=== PATIENT | female | born 1980 | race Caucasian/White ===

== ENCOUNTER 2017-01-06 19:51 | Inpatient (IN) | payer OTHER ==
[~2017-01-06] VITALS: Ht 162.6 cm; Wt 73.2 kg
[~2017-01-06 19:51] MED LIST: methylPREDNISolone SOD SUCC 125 MG/2ML VIAL ONE
[2017-01-06] MEDS ORDERED: ALBUTEROL FS 2.5 MG/3 ML VIAL.NEB ONE ×2 (19:56→20:12)
[2017-01-06] MEDS ORDERED: IPRATROPIUM NEB FS 0.5 MG/2.5 ML AMPUL.NEB ONE (19:56)
[2017-01-06] MEDS ORDERED: ALBUTEROL FS 2.5 MG/3 ML VIAL.NEB CONTNEB ONE (20:00)
[2017-01-06] MEDS ORDERED: ALBUTEROL FS 2.5 MG/3 ML VIAL.NEB NEB ONE (20:00)
[2017-01-06] MEDS ORDERED: IPRATROPIUM NEB FS 0.5 MG/2.5 ML AMPUL.NEB NEB ONE (20:00)
[2017-01-06] MEDS ORDERED: methylPREDNISolone SOD SUCC 125 MG/2ML VIAL IV ONE (20:00)
[2017-01-06 20:32] LABS: BASOPHILS # (AUTO) 0.2 /CMM (0.0-0.2); DIFF TOTAL % 100 %; EOSINOPHILS # (AUTO) 1.2 /CMM (0.0-0.7); EOSINOPHILS % (AUTO) 6.3 % (0.0-6.0); HEMATOCRIT 35 % (33-45); HEMOGLOBIN 11.9 g/dL (11.5-14.8); LYMPHOCYTES # (AUTO) 5.9 /CMM (0.8-4.8); LYMPHOCYTES % (AUTO) 32.2 % (20.0-44.0); MEAN CORPUSCULAR HEMOGLOBIN 29 PG (26.0-33.0); MEAN CORPUSCULAR HGB CONC 34 g/dl (31.0-36.0); MEAN CORPUSCULAR VOLUME 86 fL (82-100); MONOCYTES # (AUTO) 1.4 /CMM (0.1-1.30); MONOCYTES % (AUTO) 7.5 % (2.0-12.0); NEUTROPHILS # (AUTO) 9.7 /CMM (1.8-8.9); PLATELET COUNT (AUTO) 340 /CMM (150-450); RED BLOOD CELL COUNT(AUTO) 4.07 MIL/uL (4.0-5.2); WHITE BLOOD COUNT (AUTO) 18.4 K/uL (4.3-11.0)
[2017-01-06 20:38] LABS: CALCIUM, SERUM 7.9 mg/dL (8.5-10.1); CREATININE 0.7 mg/dL (0.6-1.3)
[2017-01-06] MEDS ORDERED: POTASSIUM CHLORIDE 20 MEQ TAB.PRT.SR PO ONE ×4 (21:00→21:30)
[2017-01-06] MEDS ORDERED: Magnesium 1 GM/2 ML VIAL IV ONE (21:00)
[2017-01-06] MEDS ORDERED: IV SET PRIMARY PUMP SET 1 EA INFUS.SET MC ONE (21:01)
[2017-01-06] MEDS ORDERED: Magnesium 1GM/D5W 100ML PREMIX 200 ML IV ONE (21:01)
[2017-01-06] MEDS ORDERED: ZOLPIDEM TARTRATE 5 MG TABLET PO PRN (21:30)
[2017-01-06] MEDS ORDERED: IV NS 0.9% 1,000 ML IV ONE (21:30)
[2017-01-06] MEDS ORDERED: ACETAMINOPHEN 325 MG TABLET PO PRN (21:30)
[2017-01-06 22:00] VITALS: BP 129/76
[2017-01-06 22:06] VITALS: BP 126/76
[2017-01-07] MEDS ORDERED: IPRATROPIUM NEB FS 0.5 MG/2.5 ML AMPUL.NEB ONE (00:33)
[2017-01-07] MEDS ORDERED: ALBUTEROL FS 2.5 MG/0.5 ML VIAL.NEB ONE (00:33)
[2017-01-07] MEDS ORDERED: ACETAMINOPHEN 325 MG TABLET ONE (00:38)
[2017-01-07] MEDS ORDERED: methylPREDNISolone SOD SUCC 125 MG/2ML VIAL ONE ×2 (00:38→04:35)
[2017-01-07] MEDS: methylPREDNISolone SOD SUCC 125 MG/2ML VIAL IV SCH ×2 (00:53→06:09)
[2017-01-07] MEDS: ALBUTEROL FS 2.5 MG/0.5 ML VIAL.NEB NEB SCH ×3 (01:04→13:33)
[2017-01-07] MEDS: IPRATROPIUM NEB FS 0.5 MG/2.5 ML AMPUL.NEB NEB SCH ×3 (01:04→13:34)
[2017-01-07 07:39] LABS: DIFF TOTAL % 100 %; HEMATOCRIT 34 % (33-45); HEMOGLOBIN 11.2 g/dL (11.5-14.8); LYMPHOCYTES # (AUTO) 0.7 /CMM (0.8-4.8); LYMPHOCYTES % (AUTO) 5.7 % (20.0-44.0); MEAN CORPUSCULAR HEMOGLOBIN 29 PG (26.0-33.0); MEAN CORPUSCULAR HGB CONC 34 g/dl (31.0-36.0); MEAN CORPUSCULAR VOLUME 87 fL (82-100); MONOCYTES # (AUTO) 0.1 /CMM (0.1-1.30); MONOCYTES % (AUTO) 0.4 % (2.0-12.0); NEUTROPHILS % (AUTO) 93.9 % (43.0-81.0); PLATELET COUNT (AUTO) 263 /CMM (150-450); RED BLOOD CELL COUNT(AUTO) 3.87 MIL/uL (4.0-5.2); WHITE BLOOD COUNT (AUTO) 12.7 K/uL (4.3-11.0)
[2017-01-07 07:45] LABS: ALBUMIN 3.5 g/dL (3.4-5.0); BILIRUBIN,TOTAL 0.3 mg/dL (0.2-1.0); CALCIUM, SERUM 7.9 mg/dL (8.5-10.1); CREATININE 0.8 mg/dL (0.6-1.3); PHOSPHORUS 2.5 mg/dL (2.5-4.9); POTASSIUM 4.3 mmol/L (3.5-5.1); TOTAL PROTEIN, SERUM 6.8 g/dL (6.4-8.2)
[2017-01-07 08:00] VITALS: BP 123/75
[2017-01-07 08:13] VITALS: BP 123/75
[2017-01-07] MEDS ORDERED: GUAIFENESIN LA 600 MG TABLET.SA PO SCH (09:00)
[2017-01-07] MEDS ORDERED: PANTOPRAZOLE 40 MG TABLET.DR PO SCH (09:00)
[2017-01-07] MEDS ORDERED: IV SET PRIMARY PUMP SET 1 EA INFUS.SET MC ONE (12:12)
[2017-01-07] MEDS: Magnesium 1GM/D5W 100ML PREMIX 100 ML IV SCH ×2 (12:17→13:34)
[2017-01-07] MEDS ORDERED: methylPREDNISolone SOD SUCC 125 MG/2ML VIAL IV SCH (13:00)
[2017-01-07] MEDS ORDERED: ALBU1.257 NEB (16:18)
[2017-01-07] MEDS ORDERED: FLUT1DIS INH (16:18)
[2017-01-07] MEDS ORDERED: PRED20TA PO (16:20)
== END 2017-01-07 17:05 | disposition home or self-care (01) | DRG 203 ==
LOC: ER 19:52 → TELE 21:25 → MED 23:34
PROVIDERS: ADMIT Internal Medicine; ATTEND Internal Medicine
DX: J45.901 Unspecified asthma with (acute) exacerbation (principal); E87.6 Hypokalemia; D72.829 Elevated white blood cell count, unspecified; F17.210 Nicotine dependence, cigarettes, uncomplicated; T38.0X5A Adverse effect of glucocorticoids and synthetic analogues, initial encounter; J06.9 Acute upper respiratory infection, unspecified
CPT/HCPCS: 36415; 71010-TC; 80048-TC; 80053-TC; 83735-TC; 84100-TC; 84703-TC; 85025-TC; 87081-TC; 94799-TC; A4606; J2930; J3475; Z7610

== ENCOUNTER 2017-02-02 22:07 | Emergency (ER) | payer OTHER ==
[~2017-02-02] VITALS: Ht 162.6 cm; Wt 72.6 kg
[~2017-02-02 22:07] MED LIST changes: +ALBU1.257 NEB; +FLUT1DIS INH; +PRED20TA PO; -methylPREDNISolone SOD SUCC 125 MG/2ML VIAL ONE
--- NOTE | 2017-02-02 22:26 | NUR ---
PT AMBUALTORY TO ER BED 7 BB FAMILY; ASTHMA ATTACK, AT HOME INHALER NOT WORKING. PT AOX3 RR EVEN AND UNLABORED. NO SOB NOTED. NAD NOTED. NO NVD AT THIS TIME. PT NOT DIAPHORETIC. PT GOWNED AND PLACED ON MONITOR WAITING FOR MD GUZMÁN.
[2017-02-02] MEDS ORDERED: IPRATROPIUM NEB FS 0.5 MG/2.5 ML AMPUL.NEB NEB ONE (22:30)
[2017-02-02] MEDS ORDERED: ALBUTEROL FS 2.5 MG/3 ML VIAL.NEB NEB ONE (22:30)
[2017-02-02] MEDS ORDERED: DEXAMETHASONE SOD PHOSPHATE 4 MG/ML VIAL IM ONE (22:30)
[2017-02-02] MEDS ORDERED: DEXAMETHASONE SOD PHOSPHATE 4 MG/ML VIAL ONE (22:30)
[2017-02-02] MEDS ORDERED: IPRATROPIUM NEB FS 0.5 MG/2.5 ML AMPUL.NEB ONE (22:32)
[2017-02-02] MEDS ORDERED: ALBUTEROL FS 2.5 MG/3 ML VIAL.NEB ONE (22:32)
--- NOTE | 2017-02-02 22:39 | NUR ---
RT AT BEDSIDE FOR BREATHING TX
--- NOTE | 2017-02-02 23:37 | NUR ---
Patient discharged to home in stable condition. Written and verbal after care instructions given. Patient verbalizes understanding of instruction. ambulatory with a steady gait
[2017-02-02 23:38] VITALS: BP 124/68
== END 2017-02-02 23:39 | disposition home or self-care (01) ==
LOC: ER 22:09
DX: J45.901 Unspecified asthma with (acute) exacerbation (principal)
CPT/HCPCS: 94644; 96372; 99285; A4606; J1100; Z7610

== ENCOUNTER 2023-12-20 15:49 | Emergency (ER) | payer OTHER ==
[~2023-12-20] VITALS: Ht 162.6 cm; Wt 79.4 kg
[2023-12-20] MEDS ORDERED: IPRATROPIUM NEB FS 0.5 MG/2.5 ML AMPUL.NEB NEB STA (16:11)
[2023-12-20] MEDS ORDERED: ALBUTEROL FS 2.5 MG/3 ML VIAL.NEB NEB STA (16:11)
[2023-12-20 16:49] LABS: BASOPHILS # (AUTO) 0.1 K/uL (0.0-0.2); BASOPHILS % (AUTO) 0.9 % (0.0-2.0); EOSINOPHILS # (AUTO) 0.8 K/uL (0.0-0.7); EOSINOPHILS % (AUTO) 10.5 % (0.0-6.0); HEMATOCRIT 37 % (33-45); HEMOGLOBIN 12.5 g/dL (11.5-14.8); LYMPHOCYTES # (AUTO) 2.1 K/uL (0.8-4.8); LYMPHOCYTES % (AUTO) 28.3 % (20.0-44.0); MEAN CORPUSCULAR HEMOGLOBIN 29 PG (26.0-33.0); MEAN CORPUSCULAR HGB CONC 34 g/dl (31.0-36.0); MEAN CORPUSCULAR VOLUME 86 fL (82-100); MONOCYTES # (AUTO) 0.5 K/uL (0.1-1.30); MONOCYTES % (AUTO) 6.8 % (2.0-12.0); NEUTROPHILS # (AUTO) 4.1 K/uL (1.8-8.9); NEUTROPHILS % (AUTO) 53.5 % (43.0-81.0); PLATELET COUNT (AUTO) 292 K/uL (150-450); RED BLOOD CELL COUNT(AUTO) 4.35 MIL/uL (4.0-5.2); WHITE BLOOD COUNT (AUTO) 7.6 K/uL (4.3-11.0)
[2023-12-20 16:56] LABS: CALCIUM, SERUM 8.9 mg/dL (8.5-10.1); CARBON DIOXIDE 26 mmol/L (21-32); CHLORIDE 105 mmol/L (98-107); CREATININE 0.6 mg/dL (0.6-1.3); GLUCOSE 126 mg/dL (74-106); POTASSIUM 3.1 mmol/L (3.5-5.1); SODIUM SERUM 139 mmol/L (136-145); UREA NITROGEN, BLOOD 16 mg/dL (7-18)
[2023-12-20 17:11] VITALS: O2SAT 96
[2023-12-20] MEDS ORDERED: IPRATROPIUM NEB FS 0.5 MG/2.5 ML AMPUL.NEB ONE (17:21)
[2023-12-20] MEDS ORDERED: ALBUTEROL FS 2.5 MG/3 ML VIAL.NEB ONE (17:21)
[2023-12-20 17:30] VITALS: O2SAT 98
[2023-12-20] MEDS ORDERED: POTASSIUM CHLORIDE 20 MEQ TAB.PRT.SR PO ONE ×2 (18:00→18:08)
[2023-12-20] MEDS ORDERED: predniSONE 50 MG TABLET PO ONE (19:00)
[2023-12-20] MEDS ORDERED: predniSONE 20 MG TABLET ONE (19:23)
[2023-12-20] MEDS ORDERED: PRED50TA PO (19:44)
[2023-12-20 19:54] VITALS: BP 131/81; TEMP 98; O2SAT 99
== END 2023-12-20 19:55 | disposition home or self-care (01) ==
LOC: ER 15:55
DX: J45.901 Unspecified asthma with (acute) exacerbation (principal); R10.2 Pelvic and perineal pain
CPT/HCPCS: 99285; 71045; 93005; 85025; 80048; 36415; 84484; 84702; 94640; J7512

== ENCOUNTER 2024-11-05 20:04 | Emergency (ER) | payer OTHER ==
[~2024-11-05] VITALS: Ht 162.6 cm; Wt 68.0 kg
[~2024-11-05 20:04] MED LIST changes: +PRED50TA PO
[2024-11-05 23:38] VITALS: BP 122/75; TEMP 98.1; O2SAT 98
== END 2024-11-05 23:38 | disposition home or self-care (01) ==
LOC: ER 20:06
DX: M25.512 Pain in left shoulder (principal); M54.2 Cervicalgia; R20.2 Paresthesia of skin; J45.909 Unspecified asthma, uncomplicated; Z79.51 Long term (current) use of inhaled steroids; Z79.52 Long term (current) use of systemic steroids; W01.0XXA Fall on same level from slipping, tripping and stumbling without subsequent striking against object, initial encounter; Y93.89 Activity, other specified; Y92.89 Other specified places as the place of occurrence of the external cause; Y99.8 Other external cause status
CPT/HCPCS: 73030-TC

== ENCOUNTER 2024-11-23 10:03 | Emergency (ER) | payer OTHER ==
[~2024-11-23] VITALS: Ht 162.6 cm; Wt 68.0 kg
[2024-11-23] MEDS ORDERED: TDAP [DIPH/PERTUSSIS/TET] 0.5 ML VIAL IM ONE (10:58)
[2024-11-23] MEDS: TDAP [DIPH/PERTUSSIS/TET] 0.5 ML VIAL IM ONE (11:02)
[2024-11-23] MEDS ORDERED: AMOX-430 PO (11:03)
[2024-11-23 11:12] VITALS: BP 114/69; TEMP 98.4; O2SAT 100
== END 2024-11-23 11:12 | disposition home or self-care (01) ==
LOC: ER 10:07
DX: S60.472A Other superficial bite of right middle finger, initial encounter (principal); J45.909 Unspecified asthma, uncomplicated; W53.21XA Bitten by squirrel, initial encounter; Y93.89 Activity, other specified; Y92.219 Unspecified school as the place of occurrence of the external cause; Y99.8 Other external cause status; Z79.51 Long term (current) use of inhaled steroids; Z79.52 Long term (current) use of systemic steroids
CPT/HCPCS: 90715

== ENCOUNTER 2025-03-24 22:01 | Emergency (ER) | payer OTHER ==
[~2025-03-24] VITALS: Ht 162.6 cm; Wt 71.2 kg
[~2025-03-24 22:01] MED LIST changes: +AMOX-430 PO
[2025-03-24] MEDS ORDERED: PSEUDOEPHEDRINE HCL 30 MG TABLET ONE (23:10)
[2025-03-24] MEDS: PSEUDOEPHEDRINE HCL 30 MG TABLET PO ONE (23:13)
[2025-03-24 23:16] VITALS: BP 120/75; TEMP 98; O2SAT 98
== END 2025-03-24 23:16 | disposition home or self-care (01) ==
LOC: ER 22:02
DX: R09.82 Postnasal drip (principal); R06.02 Shortness of breath; R09.81 Nasal congestion; J45.909 Unspecified asthma, uncomplicated; Z79.51 Long term (current) use of inhaled steroids; Z79.52 Long term (current) use of systemic steroids; Z79.899 Other long term (current) drug therapy

== ENCOUNTER 2025-11-04 08:44 | Emergency (ER) | payer OTHER ==
[~2025-11-04] VITALS: Ht 162.6 cm; Wt 72.6 kg
[2025-11-04 09:20] VITALS: BP 139/92; TEMP 98.1; O2SAT 100
[2025-11-04] MEDS ORDERED: ERYT3.5O9 RIGHTEYE (10:23)
== END 2025-11-04 10:34 | disposition home or self-care (01) ==
LOC: ER 09:06
DX: H00.015 Hordeolum externum left lower eyelid (principal); J45.909 Unspecified asthma, uncomplicated; Z79.51 Long term (current) use of inhaled steroids; Z79.52 Long term (current) use of systemic steroids